=== PATIENT | male | born 1945 | race Caucasian/White ===

== ENCOUNTER 2018-02-18 05:50 | Day surgery (SDC) | payer MEDICARE ==
[~2018-02-18] VITALS: Ht 172.7 cm; Wt 115.7 kg
--- NOTE | ~2018-02-18 | OP ---
PATIENT NAME: BOOGIE GUIDO MEDICAL RECORD: [id number] :43 LOCATION:[facility] ADMISSION DATE: SURGEON: CARLOS GUDINO MD DATE OF OPERATION: 02/18/2018 PREOPERATIVE DIAGNOSIS: Right larynx lesion. POSTOPERATIVE DIAGNOSIS: Right larynx lesion. PROCEDURE: Microsuspension laryngoscopy, excision of right supraglottic laryngeal lesion. SURGEON: Carlos Gudino MD ANESTHESIA: General orotracheal. BLOOD LOSS: Less than 1 mL. SPECIMENS: Lesion from the right medial arytenoid. COMPLICATIONS: None. DISPOSITION: Recovery stable. DESCRIPTION OF PROCEDURE: The patient brought to the operating room and placed in supine position, sedated and intubated by anesthesia. The table was turned 90 degrees. His eyes constanza been taped. A head drape was applied. He was positioned for laryngoscopy. He is edentulous. Using a headlight, a laryngoscope, pharynx, palate, lateral pharyngeal garber, base of tongue were examined and normal. Kleinsasser J laryngoscope was inserted. The posterior pharyngeal wall, hypopharynx, piriforms, vallecula and base of tongue were examined and no abnormalities. Supraglottic larynx was examined and he had a 7.0 tube in, anterior commissure and cords were normal. Postcricoid area was normal. I lifted the tube up and was able to evaluate the posterior cords on both sides. Left side was normal. Posterior glottic area was normal. The right side, he had ulcerative lesion involving the medial portion of the arytenoid over, the vocal process of the arytenoid, false cord, it was about a centimeter in diameter, almost around some granular changes around the edges and some fibrinous debris in the middle. The laryngoscope was suspended on a Yang. Microscope with 400 lens was brought in and then using the spatula the tube was moved over to get a good view of the area and a straight biting scissors and cup forceps were used to remove the lesion including the surrounding granular tissue full-thickness down to normal tissue underneath, it is hard to tell if this was just a deep nonhealing ulcer, vocal cord granuloma or if it might represent a neoplasm, but it was completely excised. An Afrin pledget was placed for a few minutes to stop the bleeding and the area was examined. It had been completely excised. The laryngoscope was taken out of suspension. He was awakened. The plastic tooth guard and the Afrin pledget had been removed. He was awakened, extubated, and transported to recovery in good condition. No complications. TRANSINT:[id number] Voice Confirmation ID: [id number] DOCUMENT ID: [id number] OPERATIVE REPORT [id number] BOOGIE GUIDO, CARLOS DANIEL at 1239 CC: [id number] DICTATION DATE: 02/18/18 1106 LEARNING ADMINISTRATOR: 02/18/18 1300 [facility] 02/18/18 [id number] [place] [address]
--- NOTE | ~2018-02-18 | HP ---
PATIENT: OSORIO GUIDO MEDICAL RECORD: [id number] ACCOUNT: [id number] LOCATION:[facility] : 43 ADMISSION DATE: 02/18/18 PCP: HISTORY AND PHYSICAL EXAMINATION HISTORY OF PRESENT ILLNESS: Osorio is 73 years old. He has been having persistent soreness in his throat and a lesion on the right arytenoid and vocal cord. He is being admitted for microsuspension laryngoscopy and excisional biopsy of the lesion. PAST MEDICAL HISTORY: Includes hypertension and reflux. CURRENT MEDICATIONS: Lansoprazole, pravastatin, metoprolol, amlodipine, aspirin. ALLERGIES: No known drug allergies. PHYSICAL EXAMINATION: GENERAL: He is healthy-appearing with mild hoarseness. FACE: Normal, symmetric, no lesions. EYES: Sclerae and conjunctivae are normal. EARS: Canals and TMs are normal. NOSE: No mass, polyps or drainage. ORAL CAVITY AND OROPHARYNX: Normal. NECK: No masses, no adenopathy. Laryngoscopy reveals an ulcerated lesion in the right medial arytenoid down the vocal process. Cord mobility is normal. Rest of the hypopharynx and larynx is normal. CHEST: Clear. CARDIOVASCULAR: Regular rate and rhythm, no murmur. EXTREMITIES: Normal. IMPRESSION: Right larynx lesion. PLAN: Microsuspension laryngoscopy excision. TRANSINT:[id number] Voice Confirmation ID: [id number] DOCUMENT ID: [id number] RAYSHAWN GUDINO MD at 1616 CC: [id number] DICTATION DATE: 02/14/18 1534 WORD PROCESSING OPERATOR: 02/14/18 [id number] [place] [address]
[2018-02-18 06:22] LABS: HEMATOCRIT 46.3 % (42.0-54.0); HEMOGLOBIN 16.1 g/dL (13.5-17.5); MCH 30.7 pg (26.0-34.0); MCHC 34.8 g/dL (31.0-37.0); MCV 88.2 fL (80.0-100.0); MEAN PLATELET VOLUME 11.3 fL (7.4-10.4); RBC 5.25 10x6/uL (4.20-6.10); RDW 12.9 % (11.5-14.5); WBC 5.7 10x3/uL (4.8-10.8)
[2018-02-18] MEDS ORDERED: NORVASC5 MG PO (07:24)
[2018-02-18] MEDS ORDERED: TOPROL XL50 MG PO (07:24)
[2018-02-18] MEDS ORDERED: PRAVACHOL40 MG PO (07:26)
[2018-02-18] MEDS ORDERED: BAYER CHEWABLE81 MG PO (07:26)
[2018-02-18] MEDS ORDERED: PREVACID30 MG PO (07:27)
[2018-02-18 07:35] VITALS: BP 136/73; Ht 172.7 cm; Wt 115.7 kg
== END 2018-02-18 12:58 | disposition home or self-care (01) ==
LOC: D.OPS 05:50 → D.PAN 09:15 → D.OPS 12:58
PROVIDERS: Anesthesiology
DX: J38.7 Other diseases of larynx (principal); Z01.812 Encounter for preprocedural laboratory examination; I10 Essential (primary) hypertension; K21.9 Gastro-esophageal reflux disease without esophagitis; Z79.82 Long term (current) use of aspirin; Z79.899 Other long term (current) drug therapy